=== PATIENT | female | born 1965 | race Caucasian/White ===

== ENCOUNTER → 2017-02-27 | Outpatient (CLI) | payer BC ==
[~2017-02-27] MED LIST: ASPI1TAB83 PO; B-COTAB18 PO; CALC-279 PO; CLR10 PO; GABA-113 PO; LAMO100T PO; SIMV20TA2 PO; TAMO20TA9 PO; TRAS440I2; TRAZ100T29 PO; ZOLE5INJ
[2017-02-27 14:49] VITALS: BP 99/69; PULSE 76; TEMP 37.2; O2SAT 94
--- NOTE | 2017-02-27 16:16 | Radiation Oncology Follow-Up ---
Radiation Oncology Follow-Up Date of Visit February 27, 2017. (Jolene Larios PA-C) Reason For Visit One-month follow-up in cancer survivorship care plan (Jolene Larios PA-C) Radiation Completion Date 01/21/17 (Jolene Larios PA-C) Diagnosis (1) Malignant neoplasm of central part of right female breast Status: Acute Onset Date: 04/11/2016 Histology Subtype: ductal Stage: ll Permanent Comment: Self detected right breast mass Status post mammography 04/10/2016 Status post ultrasound-guided biopsy of the breast mass and axilla 04/11/2016 Invasive ductal carcinoma with axilla biopsy negative Estrogen receptor positive, progesterone receptor positive, HER-2/donaldo positive PET/CT with activity in the right axilla Clinical stage T2 N1 M0 Status post neoadjuvant chemotherapy with TCHP 6 cycles Status post lumpectomy and sentinel lymph node biopsy 10/24/2016 Stage ypT0 ypN0 M0 Will continue Herceptin for 1 year Status post completion of radiation therapy 01/21/2017. She received 6640 cGy. Last Edited By: Jolene Larios on February 04, 2017 09:55 (Jolene Larios PA-C) History of Present Illness Ms. Lou is a 50-year-old female who self palpated a right breast mass. She did have a mammogram on 04/10/2016 which revealed a new 2.8 cm mass in the right breast with several lymph nodes seen in the axilla. She subsequently underwent an ultrasound-guided biopsy of the right breast mass on 04/11/2016 which revealed invasive ductal carcinoma that was estrogen receptor positive, progesterone receptor positive and HER-2 positive. A right axillary lymph node was also biopsied and that was negative for metastasis. The patient subsequently underwent a PET/CT scan on 04/24/2016 which only confirmed a 2.6 cm mass in the upper outer quadrant of the right breast in 3 nonenlarged right axillary lymph nodes demonstrating low level metabolic activity. The patient had a bilateral MRI of the breast on 05/07/2016 which did reveal the known mass in the right breast as well as a second focal area of suspicion right breast as well as the area of suspicion in the left breast in both were ultimately biopsied and were negative (as per patient, no pathology report available at the time of consultation). The patient was seen in consultation by Dr. Alison Garcia from breast surgery as well as Dr. Khurram Wright for medical oncology and Dr. Good as a second opinion consultation at [facility]. The patient ultimately elected to undergo neoadjuvant chemotherapy. The patient received 6 cycles of TCHP chemotherapy underneath the supervision of Dr. Khurram Wright. The patient subsequently underwent a repeat bilateral breast MRI on 08/2017 which showed a good response to neoadjuvant therapy in the right breast as well as a decrease in the size of one of the lymph nodes. The left breast show no evidence of any disease. The patient subsequently underwent a right breast lumpectomy and sentinel lymph node biopsy by Dr. Garcia on 10/24/2016. Pathology revealed no evidence of residual carcinoma in the primary tumor specimen as well as the sentinel lymph nodes. We are now seeing the patient in consultation discussed the role of adjuvant radiation therapy. She completed her systemic chemotherapy. She'll continue Herceptin every 3 weeks for one year. Decision was to treat with conventional radiation therapy. This was completed on 01/21/2017. She received 6640 cGy. (Jolene Larios PA-C) Interim History She's been doing well over the past month. She denies any changes to her breast. She notes no masses or tenderness no change of axilla. She had no swelling of her arm. Mammography has been scheduled for April. She's been seen by medical oncology and is now on tamoxifen. She continues on Herceptin every 3 weeks. She stated that she has been diagnosed with osteoporosis. She is taking supplemental calcium/magnesium/vitamin D. She was seen by rheumatology. There has been discussion of treatment with a bisphosphonate she is concerned about potential side effects. (Jolene Larios PA-C) Allergies Uncoded Allergies: adhesive tape (Allergy, Intermediate, skin rash ,pruritis, 11/09/16) Home Medications Scheduled Aspirin (Aspirin), 1 TAB PO DAILY B-Complex Vitamins (Vitamin B Complex), 1 TAB PO DAILY Calcium Citrate-Vitamin D (Calcium Citrate + D), 1 TAB PO DAILY Gabapentin (Neurontin), 600 MG PO TID Lamotrigine (Lamictal), 1 TAB PO DAILY Loratadine (Claritin), 10 MG PO DAILY Simvastatin (Zocor), 1 TAB PO DAILY Tamoxifen (Nolvadex), 20 MG PO DAILY Trastuzumab (Herceptin), BLANK Trazodone Hcl (Trazodone), 100 MG PO HS Review of Systems Gastrointestinal: Symptoms: WNL Oral: Symptoms: No Problems Respiratory: Symptoms: WNL Urinary: Symptoms: WNL Skin: Symptoms: No Problems Other Skin Symptoms: Reports only a micky color to the treatment site; Breast: Right Upper Arm Measurement: 27.5 Right Mid Arm Measurement: 23.5 Right Wrist Measurement: 15.5 Left Upper Arm Measurement: 27.0 Left Mid Arm Measurement: 23.5 Left Wrist Measurement: 15.0 Arm Dominence: Right (Jolene Larios PA-C) Physical Exam Vital Signs Date Time Temp Pulse Resp B/P Pulse Ox O2 Delivery O2 Flow Rate FiO2 02/27/17 14:49 37.2 76 16 99/69 94 Fatigue: None General Appearance: no apparent distress Eyes: normal inspection, EOMI ENT: normal ENT inspection, hearing grossly normal Neck: no adenopathy, thyroid normal Respiratory/Chest: lungs clear, no respiratory distress, no accessory muscle use Breast: Breast examination reveals well-healed incisions of the right breast. There are no masses or tenderness and no axillary adenopathy. Generalized fibrous changes. Slight hyperpigmentation. There are no skin retractions or nipple changes. Using the [place] score cosmesis she has a good outcome. Left breast showed no masses or tenderness no axillary adenopathy. Cardiovascular: regular rate, rhythm, no gallop, no murmur Abdomen: non tender Extremities: no pedal edema Neurologic/Psychiatric: no motor/sensory deficits, alert, normal mood/affect (Jloene Larios PA-C) Assessment & Plan Plan: She is scheduled for mammography in April. She was also seen and examined today by Dr. Wright. She will continue follow-up with medical oncology , her breast surgeon, and primary care physician. Today we completed a cancer survivorship care plan. Copy of the document was given to the patient. We asked her to return to our office in 6 months. She request further information in regards to rheumatology follow-up. She would like to have another opinion in regards to treatment. She understands that the supplements will help and also weight bearing exercise. She may call office if she has any questions or concerns. (Jolene Larios PA-C) I agree with note created by Jolene Larios PA-C. I reviewed the patient's chart and information with her. I have examined and evaluated the patient. I reviewed relevant clinical information and answered the patient's and/or family' s questions. (Veeral. Wright MD) Total Time In Follow-Up I spent 20 minutes speaking to the patient and performing examination. I spent 20 minutes reviewing information, preparing the survivorship document, and completing this note. (Jolene Larios PA-C) I spent 15 minutes examining and counseling the patient. (Veeral. Wright MD) Copy To Alison Garcia MD; Amanda Marley D.O.; Khurram Wright M.D. Problem Qualifiers (1) Malignant neoplasm of central part of right female breast: Estrogen receptor status: positive Qualified Codes: C50.111 - Malignant neoplasm of central portion of right female breast; Z17.0 - Estrogen receptor positive status [ER+]
== END | disposition home or self-care (01) ==
LOC: C.ONC 14:42
PROVIDERS: ATTEND Physician Assistant Medical
DX: Z08 Encounter for follow-up examination after completed treatment for malignant neoplasm (principal); Z92.3 Personal history of irradiation; Z85.3 Personal history of malignant neoplasm of breast

== ENCOUNTER → 2017-05-23 | Outpatient (CLI) | payer BC ==
[~2017-05-23] MED LIST changes: +TAMO20TA47 PO; -TAMO20TA9 PO; -ZOLE5INJ
[2017-05-23 12:42] LABS: CREATININE 0.92 mg/dl (0.60-1.20); MAGNESIUM 1.9 mg/dl (1.8-2.4)
[2017-05-23 13:03] LABS: URINE COLLECTION TIME 24 HOURS
[2017-05-23 13:06] LABS: CALCIUM URINE < 5.0 mg/dl
[2017-05-24 16:13] LABS: ALBUMIN 3.9 G/DL (3.8-4.8); GAMMA GLOBULIN 0.7 G/DL (0.8-1.7); TOTAL PROTEIN 6.1 G/DL (6.2-8.3)
== END | disposition home or self-care (01) ==
LOC: C.LAB1850 09:45
PROVIDERS: ATTEND Internal Medicine Rheumatology
DX: M81.0 Age-related osteoporosis without current pathological fracture (principal); E55.9 Vitamin D deficiency, unspecified; Z85.3 Personal history of malignant neoplasm of breast

== ENCOUNTER → 2017-09-03 | Outpatient (CLI) | payer BC ==
[~2017-09-03] MED LIST changes: -TAMO20TA47 PO; +TAMO20TA9 PO; +ZOLE5INJ
[2017-09-03 14:19] VITALS: BP 105/71; PULSE 76; TEMP 36.6; O2SAT 98
--- NOTE | 2017-09-03 15:28 | Radiation Oncology Follow-Up ---
Radiation Oncology Follow-Up Date of Visit Sep 03, 2017. Reason For Visit 6 month follow-up Radiation Completion Date 01/21/17 Diagnosis (1) Malignant neoplasm of central part of right female breast Status: Resolved Onset Date: 04/11/2016 Histology Subtype: ductal Stage: ll Permanent Comment: Self detected right breast mass Status post mammography 04/10/2016 Status post ultrasound-guided biopsy of the breast mass and axilla 04/11/2016 Invasive ductal carcinoma with axilla biopsy negative Estrogen receptor positive, progesterone receptor positive, HER-2/donaldo positive PET/CT with activity in the right axilla Clinical stage T2 N1 M0 Status post neoadjuvant chemotherapy with TCHP 6 cycles Status post lumpectomy and sentinel lymph node biopsy 10/24/2016 Stage ypT0 ypN0 M0 Will continue Herceptin for 1 year Status post completion of radiation therapy 01/21/2017. She received 6640 cGy. Last Edited By: Jolene Larios on February 04, 2017 09:55 History of Present Illness Ms. Lou self palpated a right breast mass. She did have a mammogram on 04/10 which revealed a new 2.8 cm mass in the right breast with several lymph nodes seen in the axilla. She subsequently underwent an ultrasound-guided biopsy of the right breast mass on 04/11/2016 which revealed invasive ductal carcinoma that was estrogen receptor positive, progesterone receptor positive and HER-2 positive. A right axillary lymph node was also biopsied and that was negative for metastasis. The patient subsequently underwent a PET/CT scan on which only confirmed a 2.6 cm mass in the upper outer quadrant of the right breast in 3 nonenlarged right axillary lymph nodes demonstrating low level metabolic activity. The patient had a bilateral MRI of the breast on 04/2016 which did reveal the known mass in the right breast as well as a second focal area of suspicion right breast as well as the area of suspicion in the left breast in both were ultimately biopsied and were negative (as per patient, no pathology report available at the time of consultation). The patient was seen in consultation by Dr. Alison Garcia from breast surgery as well as Dr. Khurram Wright for medical oncology and Dr. Good as a second opinion consultation at [facility]. The patient ultimately elected to undergo neoadjuvant chemotherapy. The patient received 6 cycles of TCHP chemotherapy underneath the supervision of Dr. Khurram Wright. The patient subsequently underwent a repeat bilateral breast MRI on 10/11/2016 which showed a good response to neoadjuvant therapy in the right breast as well as a decrease in the size of one of the lymph nodes. The left breast show no evidence of any disease. The patient subsequently underwent a right breast lumpectomy and sentinel lymph node biopsy by Dr. Garcia on 10/24/2016. Pathology revealed no evidence of residual carcinoma in the primary tumor specimen as well as the sentinel lymph nodes. We are now seeing the patient in consultation discussed the role of adjuvant radiation therapy. She completed her systemic chemotherapy. She'll continue Herceptin every 3 weeks for one year. Decision was to treat with conventional radiation therapy. This was completed on 01/21/2017. She received 6640 cGy. Interim History She has noted swelling of her right breast. There had been swelling following radiation that did improve. In April she had a mammogram. Following mammography breast seemed to become larger again. There is associated generalized tenderness. She has noted no redness or increased warmth. She's noticed no change of her axilla. She feels the top portion of her arm may be slightly larger. She denies pain in her arm. He has been no swelling of her hand or lower arm. She has had a 10 pound weight gain over the past few months. She stated that she had been on a healthy diet and begin eating foods that were less healthy. She is on tamoxifen and denies side effects. She does get reclast and had an infusion this morning. Allergies Uncoded Allergies: adhesive tape (Allergy, Intermediate, skin rash ,pruritis, 11/09/16) Home Medications Scheduled Aspirin (Aspirin), 1 TAB PO DAILY B-Complex Vitamins (Vitamin B Complex), 1 TAB PO DAILY Calcium Citrate-Vitamin D (Calcium Citrate + D), 1 TAB PO DAILY Simvastatin (Zocor), 1 TAB PO DAILY Tamoxifen (Nolvadex), 20 MG PO DAILY Trazodone Hcl (Trazodone), 100 MG PO HS Zoledronic Acid (Reclast), 5 MG YEARLY Scheduled PRN Loratadine (Claritin), 10 MG PO DAILY PRN for Nasal Congestion Review of Systems Gastrointestinal: Symptoms: WNL Oral: Symptoms: No Problems Respiratory: Symptoms: WNL Urinary: Symptoms: WNL Skin: Symptoms: No Problems Breast: Right Upper Arm Measurement: 27.8 Right Mid Arm Measurement: 24.3 Right Wrist Measurement: 15.0 Left Upper Arm Measurement: 27.0 Left Mid Arm Measurement: 23.5 Left Wrist Measurement: 15.0 Arm Dominence: Right Physical Exam Vital Signs Date Time Temp Pulse Resp B/P (MAP) Pulse Ox O2 Delivery O2 Flow Rate FiO2 09/03/17 14:19 36.6 76 12 105/71 98 Fatigue: None General Appearance: no apparent distress Eyes: normal inspection, EOMI ENT: normal ENT inspection, hearing grossly normal Neck: no adenopathy, thyroid normal Respiratory/Chest: lungs clear, no respiratory distress, no accessory muscle use Breast: There is obvious swelling of the right breast. This does not appear as skin edema. The right breast generally looks enlarged compared to the left. There is generalized tenderness. There are no distinct masses. There is no erythema. There is no lymphadenopathy of the axilla. Using the [place] score cosmesis she has a good outcome. The left breast showed no masses or tenderness and no axillary adenopathy. Cardiovascular: regular rate, rhythm, no gallop, no murmur Extremities: no pedal edema, + pertinent finding (our measurements were reviewed and there is a 1 cm increase in the right upper arm.) Neurologic/Psychiatric: no motor/sensory deficits, alert, normal mood/affect Skin: warm/dry Pain Management Patient Reports Pain: Yes Initial Pain Intensity: 2 Pain Medication Comment: generalized right breast pain Pain Management Plan She will take ibuprofen 400 mg twice a day with food Laboratory Laboratory Results: not applicable Pathology Pathology Results: not applicable Imaging Imaging Studies: were reviewed, and pertinent findings noted below Imaging Comments Date/Time of Imaging Study Study Completed: 04/30/2017 10:19 AM [facility] PACS Image Narrative Comparison is made to images from 04/30/2017 and images from 10/24/2016 and images from 05/10/2016 and images from 04/10/2016 (bilateral) and images from 12/30/2013 (bilateral) and images from 12/24/2012 (bilateral). Right Breast Findings: There are scattered fibroglandular densities (25% - 50% fibroglandular). Expected post therapy changes with 9:00 post surgical changes at lumpectomy site. Targeted US demonstrates a corresponding avascular seroma with a few thin avascular septations [id number]. There are no suspicious calcifications, masses, or other abnormalities. Left Breast Findings: There are scattered fibroglandular densities (25% - 50% fibroglandular). No significant masses, calcifications or other abnormalities are seen. Authenticated By Authenticating Date Authenticating Time Reading Providers(s) ANASTASIYA DOMÍNGUEZ MD 04-30-2017 10:50 ANASTASIYA DOMÍNGUEZ MD IMPRESSION: RIGHT BREAST: Findings are probably benign. A short interval follow-up is recommended in 6 months. LEFT BREAST: Negative, no evidence of malignancy. Normal interval follow-up is recommended in 12 months. OVERALL ASSESSMENT - CATEGORY 3 - PROBABLY BENIGN END OF IMPRESSION Note: Approximately 10% of breast cancers are not detected on mammography. A negative mammographic report should not delay biopsy if a clinically suggestive mass is present. This mammogram has been analyzed with the computer aided detection system. Tomosynthesis was done. This notice contains the results of your recent mammogram, including information about breast density. If your mammogram shows that your breast tissue is dense, you should know that dense breast tissue is a common finding and is not abnormal. Statistics show many women could have dense or highly dense breasts. Dense breast tissue can make it harder to find cancer on a mammogram and may be associated with an increased risk of cancer. This information about the result of your mammogram is given to you to raise your awareness and to inform your conversations with your physician. Together, you can decide which screening options are right for you, based on your mammogram results, individual risk factors or physical examination. A report of your results was sent to your physician. Your mammographic breast density on today's study is described above. There are four categories of breast density on mammography. Fatty breasts and those with scattered fibroglandular tissue are not considered dense. Heterogeneously dense or extremely dense tissue is considered "dense". Please understand that assessment of breast density may vary from year to year. Date/Time of Imaging Study Study Completed: 04/30/2017 10:39 AM [facility] PACS Image Narrative Comparison is made to images from 04/30/2017 and images from 10/24/2016 and images from 05/10/2016 and images from 04/10/2016 (bilateral) and images from 12/30/2013 (bilateral) and images from 12/24/2012 (bilateral). Right Breast Findings: There are scattered fibroglandular densities (25% - 50% fibroglandular). Expected post therapy changes with 9:00 post surgical changes at lumpectomy site. Targeted US demonstrates a corresponding avascular seroma with a few thin avascular septations [id number]. There are no suspicious calcifications, masses, or other abnormalities. Left Breast Findings: There are scattered fibroglandular densities (25% - 50% fibroglandular). No significant masses, calcifications or other abnormalities are seen. Authenticated By Authenticating Date Authenticating Time Reading Providers(s) ANASTASIYA DOMÍNGUEZ MD 04-30-2017 10:50 ANASTASIYA DOMÍNGUEZ MD IMPRESSION: RIGHT BREAST: Findings are probably benign. A short interval follow-up is recommended in 6 months. LEFT BREAST: Negative, no evidence of malignancy. Normal interval follow-up is recommended in 12 months. OVERALL ASSESSMENT - CATEGORY 3 - PROBABLY BENIGN END OF IMPRESSION Note: Approximately 10% of breast cancers are not detected on mammography. A negative mammographic report should not delay biopsy if a clinically suggestive mass is present. This mammogram has been analyzed with the computer aided detection system. Tomosynthesis was done. This notice contains the results of your recent mammogram, including information about breast density. If your mammogram shows that your breast tissue is dense, you should know that dense breast tissue is a common finding and is not abnormal. Statistics show many women could have dense or highly dense breasts. Dense breast tissue can make it harder to find cancer on a mammogram and may be associated with an increased risk of cancer. This information about the result of your mammogram is given to you to raise your awareness and to inform your conversations with your physician. Together, you can decide which screening options are right for you, based on your mammogram results, individual risk factors or physical examination. A report of your results was sent to your physician. Your mammographic breast density on today's study is described above. There are four categories of breast density on mammography. Fatty breasts and those with scattered fibroglandular tissue are not considered dense. Heterogeneously dense or extremely dense tissue is considered "dense". Please understand that assessment of breast density may vary from year to year. Assessment & Plan Plan: Due to the swelling of the right breast. She has been instructed to take ibuprofen 200 mg pills. She'll take 2 twice a day for the next week. She'll take this with food. She will return to our office in 1 week for reexamination of the breast. If she has persistent swelling she'll be referred to the lymphedema clinic. She'll continue regular follow-up with Dr. Garcia, Dr. Wright , and her primary care physician. Total Time In Follow-Up I spent 20 minutes speaking patient performing examination. I spent 15 minutes reviewing information in completing this note. Copy To Alison Garcia MD; Amanda Marley D.O.; Khurram Wright M.D. Problem Qualifiers (1) Malignant neoplasm of central part of right female breast: Estrogen receptor status: positive Qualified Codes: C50.111 - Malignant neoplasm of central portion of right female breast; Z17.0 - Estrogen receptor positive status [ER+]
== END | disposition home or self-care (01) ==
LOC: C.ONC 14:06
PROVIDERS: ATTEND Physician Assistant Medical
DX: Z08 Encounter for follow-up examination after completed treatment for malignant neoplasm (principal); Z92.3 Personal history of irradiation; Z85.3 Personal history of malignant neoplasm of breast

== ENCOUNTER → 2017-11-13 | Outpatient (CLI) | payer OTHER ==
[~2017-11-13] MED LIST changes: -GABA-113 PO; -LAMO100T PO; -TRAS440I2
[2017-11-13 13:54] VITALS: BP 114/79; PULSE 78; TEMP 37; O2SAT 98
--- NOTE | 2017-11-13 15:25 | Radiation Oncology Follow-Up ---
Radiation Oncology Follow-Up Date of Visit Nov 13, 2017. Radiation Completion Date finished 01-21-2017 Diagnosis (1) Malignant neoplasm of central part of right female breast Status: Resolved Onset Date: 04/11/2016 Permanent Comment: Self detected right breast mass Status post mammography 04/10/2016 Status post ultrasound-guided biopsy of the breast mass and axilla 04/11/2016 Invasive ductal carcinoma with axilla biopsy negative Estrogen receptor positive, progesterone receptor positive, HER-2/donaldo positive PET/CT with activity in the right axilla Clinical stage T2 N1 M0 Status post neoadjuvant chemotherapy with TCHP 6 cycles Status post lumpectomy and sentinel lymph node biopsy 10/24/2016 Stage ypT0 ypN0 M0 Will continue Herceptin for 1 year Status post completion of radiation therapy 01/21/2017. She received 6640 cGy. Last Edited By: Jolene Larios on February 04, 2017 09:55 Interim History Ms. Lou is a 51-year-old female stage II right breast cancer status post neoadjuvant chemotherapy, lumpectomy/sentinel lymph node biopsy in September 2016 followed by adjuvant radiation therapy which completed in December 2016. The patient has recently completed one year of Herceptin. More recently, the patient was seen August 2017 and was having some complaints of breast edema. We did refer her to the lymphedema clinic. We are now seeing the patient back in follow-up evaluation. Since we last saw the patient, she states she is doing better. She states that she still does continue to have some tenderness to palpation however her symptoms are improving. She does continue to go to the lymphedema clinic. She did reschedule her mammogram due to the swelling in her breast and is scheduled to undergo in several weeks. She will follow-up with Dr. Alison Garcia after her next mammogram. She does also follow with Dr. Khurram Wright for medical oncology. She is currently receiving tamoxifen underneath his care. She has no other complaints at this time. Allergies Uncoded Allergies: adhesive tape (Allergy, Intermediate, skin rash ,pruritis, 11/09/16) Home Medications Scheduled Aspirin (Aspirin), 1 TAB PO DAILY B-Complex Vitamins (Vitamin B Complex), 1 TAB PO DAILY Calcium Citrate-Vitamin D (Calcium Citrate + D), 1 TAB PO DAILY Simvastatin (Zocor), 1 TAB PO DAILY Tamoxifen (Nolvadex), 20 MG PO DAILY Trazodone Hcl (Trazodone), 100 MG PO HS Zoledronic Acid (Reclast), 5 MG YEARLY Scheduled PRN Loratadine (Claritin), 10 MG PO DAILY PRN for Nasal Congestion Review of Systems Gastrointestinal: Symptoms: WNL Oral: Symptoms: No Problems Respiratory: Symptoms: WNL Urinary: Symptoms: WNL Skin: Symptoms: No Problems Breast: Right Upper Arm Measurement: 28.5 Right Mid Arm Measurement: 24.0 Right Wrist Measurement: 5.2 Left Upper Arm Measurement: 28.0 Left Mid Arm Measurement: 23.8 Left Wrist Measurement: 15.5 Arm Dominence: Right Patient Cosmetic Evaluation: Excellent Staff Cosmetic Evalaluation: Excellent Cosmetic Comments: " my 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 Minimal dimpling noted in the right breast. Some tenderness to palpation along the chest wall however no masses palpable. No axillary adenopathy. Cardiovascular: regular rate, rhythm, no edema, no gallop, no JVD, no murmur Abdomen: normal bowel sounds, non tender, soft, no organomegaly Extremities: normal range of motion, non-tender, normal inspection, no pedal edema, no calf tenderness Neurologic/Psychiatric: accounts receivable representative II-XII nml as tested, no motor/sensory deficits, alert, normal mood/affect, oriented x 3 Pain Management Patient Reports Pain: Yes Side: Right Pain Location: right breast Patient Preferred Pain Scale: 0 - 10 Initial Pain Intensity: 3.0 Pain Intervention: Refuses Pain Medication Pain Management Plan Patient will continue with lymphedema clinic for breast discomfort/pain. Laboratory Laboratory Results: not applicable Pathology Pathology Results: not applicable Imaging Imaging Studies: not applicable Assessment & Plan Assessment: Ms. Lou is doing well overall with no evidence of clinical recurrence. She is scheduled to undergo a mammogram in the next month and will then follow-up with Dr. Alison Garcia. Clinically, she does still have some breast edema/tenderness; she will continue with the lymphedema clinic. Plan: 1. Return to clinic in 6 months. 2. Mammograms scheduled and patient will follow up with Dr. Alison Garcia. 3. Continue on tamoxifen underneath the supervision of Dr. Khurram Wright. 4. Continue to follow-up with all other clinical providers. 5. Patient and family encouraged to call us with any further questions or concerns. Total Time (Attending) In Follow-Up I spent 20 minutes examining and counseling the patient. I spent 15 minutes completing this note. WIRE RIGGER Copy To Alison Garcia MD; Amanda Marley D.O.; Khurram Wright M.D.
== END | disposition home or self-care (01) ==
LOC: C.ONC 13:47
PROVIDERS: ATTEND Physician Assistant Medical
DX: Z08 Encounter for follow-up examination after completed treatment for malignant neoplasm (principal); Z92.3 Personal history of irradiation; Z85.3 Personal history of malignant neoplasm of breast

== ENCOUNTER → 2018-05-22 | Outpatient (CLI) | payer OTHER ==
[2017-11-13 13:54] VITALS: O2SAT 98
[2018-05-22 14:21] VITALS: BP 115/73; PULSE 74; TEMP 36.8
--- NOTE | 2018-05-22 16:09 | Radiation Oncology Follow-Up ---
Radiation Oncology Follow-Up Date of Visit May 22, 2018. Reason For Visit Six-month follow-up Radiation Completion Date 01/21/17 Diagnosis (1) Malignant neoplasm of central part of right female breast Status: Resolved Onset Date: 04/11/2016 Histology Subtype: Ductal Stage: ll Permanent Comment: Self detected right breast mass Status post mammography 04/10/2016 Status post ultrasound-guided biopsy of the breast mass and axilla 04/11/2016 Invasive ductal carcinoma with axilla biopsy negative Estrogen receptor positive, progesterone receptor positive, HER-2/donaldo positive PET/CT with activity in the right axilla Clinical stage T2 N1 M0 Status post neoadjuvant chemotherapy with TCHP 6 cycles Status post lumpectomy and sentinel lymph node biopsy 10/24/2016 Stage ypT0 ypN0 M0 Will continue Herceptin for 1 year Status post completion of radiation therapy 01/21/2017. She received 6640 cGy. Last Edited By: Jolene Larios on February 04, 2017 09:55 History of Present Illness Ms. Lou self palpated a right breast mass. She did have a mammogram on 04/10 which revealed a new 2.8 cm mass in the right breast with several lymph nodes seen in the axilla. She subsequently underwent an ultrasound-guided biopsy of the right breast mass on 04/11/2016 which revealed invasive ductal carcinoma that was estrogen receptor positive, progesterone receptor positive and HER-2 positive. A right axillary lymph node was also biopsied and that was negative for metastasis. The patient subsequently underwent a PET/CT scan on which only confirmed a 2.6 cm mass in the upper outer quadrant of the right breast in 3 nonenlarged right axillary lymph nodes demonstrating low level metabolic activity. The patient had a bilateral MRI of the breast on 04/2016 which did reveal the known mass in the right breast as well as a second focal area of suspicion right breast as well as the area of suspicion in the left breast in both were ultimately biopsied and were negative (as per patient, no pathology report available at the time of consultation). The patient was seen in consultation by Dr. Alison Garcia from breast surgery as well as Dr. Khurram Wright for medical oncology and Dr. Good as a second opinion consultation at [facility]. The patient ultimately elected to undergo neoadjuvant chemotherapy. The patient received 6 cycles of TCHP chemotherapy underneath the supervision of Dr. Khurram Wright. The patient subsequently underwent a repeat bilateral breast MRI on 10/11/2016 which showed a good response to neoadjuvant therapy in the right breast as well as a decrease in the size of one of the lymph nodes. The left breast show no evidence of any disease. The patient subsequently underwent a right breast lumpectomy and sentinel lymph node biopsy by Dr. Garcia on 10/24/2016. Pathology revealed no evidence of residual carcinoma in the primary tumor specimen as well as the sentinel lymph nodes. We are now seeing the patient in consultation discussed the role of adjuvant radiation therapy. She completed her systemic chemotherapy. She'll continue Herceptin every 3 weeks for one year. Decision was to treat with conventional radiation therapy. This was completed on 01/21/2017. She received 6640 cGy. Interim History She has been doing well over this past 6 months. She denies any changes to her breast. She is noted no masses or tenderness and no change of the axilla. She has been followed at the lymphedema clinic and had treatment to the breast as well as the arm. She has noted some increased swelling of the right breast since her recent mammogram. She was happy to report that the port has been removed. She is on tamoxifen and denies side effects. Her current main concern is her who is undergoing treatment for head and neck cancer. Allergies Uncoded Allergies: adhesive tape (Allergy, Intermediate, skin rash ,pruritis, 11/09/16) Home Medications Scheduled Aspirin (Aspirin), 1 TAB PO DAILY B-Complex Vitamins (Vitamin B Complex), 1 TAB PO DAILY Calcium Citrate-Vitamin D (Calcium Citrate + D), 1 TAB PO DAILY Simvastatin (Zocor), 1 TAB PO DAILY Tamoxifen (Nolvadex), 20 MG PO DAILY Trazodone Hcl (Trazodone), 100 MG PO HS Zoledronic Acid (Reclast), 5 MG YEARLY Scheduled PRN Loratadine (Claritin), 10 MG PO DAILY PRN for Nasal Congestion Review of Systems Gastrointestinal: Symptoms: WNL Oral: Symptoms: No Problems Respiratory: Symptoms: WNL Urinary: Symptoms: WNL Skin: Symptoms: No Problems Breast: Right Upper Arm Measurement: 27.5 Right Mid Arm Measurement: 23.5 Right Wrist Measurement: 15.5 Left Upper Arm Measurement: 27.3 Left Mid Arm Measurement: 23.5 Left Wrist Measurement: 15.3 Arm Dominence: Right Patient Cosmetic Evaluation: Excellent Staff Cosmetic Evalaluation: Excellent Cosmetic Comments: " my right breast is larger due to lymphadema " Physical Exam Vital Signs Date Time Temp Pulse Resp B/P (MAP) Pulse Ox O2 Delivery O2 Flow Rate FiO2 05/22/18 14:21 36.8 74 18 115/73 Fatigue: None General Appearance: no apparent distress Eyes: normal inspection, EOMI ENT: normal ENT inspection, hearing grossly normal Neck: no adenopathy, thyroid normal Respiratory/Chest: lungs clear, no respiratory distress, no accessory muscle use Breast: Breast examination reveals well-healed incisions of the right breast there are no masses or tenderness and no axillary adenopathy. There are no nipple changes. There is no edema of the breast. Using the Bacova score cosmesis she has a good outcome. The left breast showed no masses or tenderness and no axillary adenopathy. Cardiovascular: regular rate, rhythm, no gallop Extremities: normal inspection Neurologic/Psychiatric: no motor/sensory deficits, alert, normal mood/affect Skin: warm/dry Pain Management Patient Reports Pain: No Pain Location: None Patient Preferred Pain Scale: 0 - 10 Initial Pain Intensity: 0.0 Pain Management Plan She denies pain therefore requires no pain management. Laboratory Laboratory Results: not applicable Pathology Pathology Results: were reviewed, and pertinent findings noted in HPI Imaging Imaging Studies: were reviewed, and pertinent findings noted below Imaging Comments She had a mammogram May 12, 2018. This was bilateral mammography. There was no mammographic evidence of malignancy. This was given BI-RADS Category 2. Assessment & Plan Plan: Continue with scheduled mammography. Continue regular follow-up with Dr. Garcia, Dr. Wright, and her primary care provider. She will return to the lymphedema clinic as needed. He will refill a prescription of therapy if needed. She continues on tamoxifen. We asked her to return to our office in 1 year. She may call if she has any questions or concerns in the interim. Total Time In Follow-Up I spent 20 minutes speaking to the patient in performing examination. I spent 15 minutes reviewing information and completing this note. [place] Copy To Alison Garcia MD; Amanda Marley D.O.; Khurram Wright M.D. Problem Qualifiers (1) Malignant neoplasm of central part of right female breast: Estrogen receptor status: positive Qualified Codes: C50.111 - Malignant neoplasm of central portion of right female breast; Z17.0 - Estrogen receptor positive status [ER+]
== END | disposition home or self-care (01) ==
LOC: C.ONC 14:08
PROVIDERS: ATTEND Physician Assistant Medical
DX: Z08 Encounter for follow-up examination after completed treatment for malignant neoplasm (principal); Z92.3 Personal history of irradiation; Z85.3 Personal history of malignant neoplasm of breast